=== PATIENT | female | born 1970 | race Caucasian/White ===

== ENCOUNTER 2017-02-28 20:16 | Inpatient (IN) | payer BC, OTHER ==
[~2017-02-28] VITALS: Ht 157.5 cm; Wt 82.5 kg
--- NOTE | 2017-02-28 20:29 | ED Lower Extremity ---
General Chief Complaint: Lower Extremity Stated Complaint: L ANKLE DEFORMITY History of Present Illness Time seen by provider: 20:20 Initial Comments patient was walking on an incline in her yard when she twisted her left ankle and it rolled under her causing her to fall. She had immediate onset of pain and was unable to bear weight on the left lower extremity. EMS did a pneumatic brace on her, she has had fentanyl 100 g and morphine 10 mg IV prior to arrival. She currently rates her pain 10. Onset: just prior to arrival Pain/Injury Location: left ankle Method of Injury: fell Modifying Factors: Improves With Immobilization Allergies and Home Medications Allergies Coded Allergies: Penicillins (Verified Allergy, Mild, 02/28/17) promethazine (Verified Allergy, Unknown, 02/28/17) terfenadine (Verified Allergy, Unknown, 02/28/17) Constitutional: no symptoms reported, see HPI EENTM: no symptoms reported, see HPI Respiratory: no symptoms reported, see HPI Cardiovascular: no symptoms reported, see HPI Gastrointestinal: no symptoms reported, see HPI Genitourinary: no symptoms reported, see HPI : No ( had vasectomy) Musculoskeletal: see HPI, joint pain (left ankle), joint swelling, muscle pain , muscle cramps Skin: no symptoms reported, see HPI Psychiatric/Neurological: No Symptoms Reported, See HPI All Other Systems Reviewed Negative Unless Noted: Yes Past Fmncnmn-Rymhyr-Plvmid Hx Patient Social History Recent Foreign Travel: No Contact w/Someone Who Travel: No Reviewed Nursing Assessment Reviewed/Agree w Nursing PMH: Yes Physical Exam Vital Signs Vital Sign - Last 12Hours 02/28/17 02/28/17 20:18 21:00 Temp 97.9 Pulse 100 Resp 18 B/P (MAP) 122/61 Pulse Ox 100 O2 Delivery Room Air O2 Flow Rate 2.00 2.00 Capillary Refill : General Appearance: WD/WN, moderate distress (secondary to pain left ankle) HEENT: PERRL/EOMI, normal ENT inspection, TMs normal, pharynx normal Neck: non-tender, full range of motion, supple, normal inspection Cardiovascular: regular rate, rhythm, no murmur, other (right ankle 2+ pedal pulses, left ankle 2+ posterior tibialis and faint dorsalis pedis. Cap refill approximately 4 seconds in the left toes. Sensation intact left toes) Respiratory: chest non-tender, lungs clear, normal breath sounds, no respiratory distress Gastrointestinal: normal bowel sounds, non tender, soft, no organomegaly, no pulsatile mass Knees: bilateral knee non-tender, bilateral knee normal inspection, bilateral knee normal range of motion, bilateral knee no evidence of injury Ankles: right ankle non-tender, right ankle normal inspection, right ankle normal range of motion, right ankle no evidence of injury, left ankle bone tenderness, left ankle deformity (obvious anterior displacement of the tibia in relation to the talus.), left ankle limited range of motion (secondary to fracture and dislocation), left ankle pain, left ankle soft tissue tenderness, left ankle swelling Neurologic/Tendon: normal sensation, normal motor functions, normal tendon functions, responds to pain Neurologic/Psychiatric: no motor/sensory deficits, alert, normal mood/affect, oriented x 3 Skin: normal color, warm/dry Lymphatic: no adenopathy Procedure: closed reduction left ankle Patient Education: Explained Benefits, Explained Risks, Pt. Ack. Understanding Agreement on procedure with pt: Yes Breath Sounds per Auscultation: Clear Heart Sounds per Auscultation: Regular Airway Exam: Mouth opens >2 fingers, Neck Full Range of Motion, Visulation of Uvula Sedation Adminstration Time: 20:20 Total Time spent in CS 10 minutes Progress/Conclusion respiratory therapy present in room patient on monitors for vital signs, O2 per nasal cannula at 3 L, SaO2 99-100%, End tidal CO2 monitored 2020 Versed 5 mg IV Re-examination Time: 20:45 Re-examination patient vital signs stable, no complications. patient alert, oriented 3 and answering all questions, following commands appropriately. Dr. Rosen present in room through procedure. Care turned over to: Lidia Bearden RN Splinting and Joint Reduction : Location: left ankle, trimalleolar fracture and dislocation Pre-Proc Neuro Vasc Exam: normal (with exception of decreased pulse dorsalis pedis on the left) Post-Proc Neuro Vasc Exam: normal (pedal pulses on the left 2+ and symmetric bilateral lower extremities) Progress once adequate pain control and sedation were obtained, the left ankle was distracted and tibia easily reduced and alignment with the talus. While keeping the reduction intact, a posterior and sugar tong Ortho-Glass splint were applied with trip wraps. Alignment was held until the splint was secure. Then postreduction x-rays were ordered. Reduction Attempts: 1 Pre-Procedure NV Exam: Yes post joint reduction film: joint reduced (trimalleolar fractures in adequate alignment with minimal displacement) Trip wrap: Yes Hand-Made Type: orthoglass Splint Application: Short Leg (posterior and sugar tong, with ankle in neutral position) Progress/Results/Core Measures Results/Orders My Orders Orders - XOCHITL BLUE Ankle, Left, 3 Views (02/28/17 20:25) Fentanyl Injection (Sublimaze Injection (02/28/17 20:30) Diazepam Injection (Valium Injection) (02/28/17 20:30) Midazolam Injection (Versed Injection) (02/28/17 20:45) Ns Iv 1000 Ml (Sodium Chloride 0.9%) (02/28/17 20:40) Ankle, Left, 3 Views (02/28/17 20:57) Medications Given in ED Current Medications Medications Dose Ordered Sig/Luciana Route Start Time Stop Time Status Last Admin Dose Admin Diazepam 2.5 mg ONCE ONCE IV 02/28/17 20:30 02/28/17 20:31 DC 02/28/17 20:39 2.5 MG Fentanyl Citrate 50 mcg ONCE ONCE IVP 02/28/17 20:30 02/28/17 20:31 DC 02/28/17 20:37 50 MCG Midazolam HCl 5 mg ONCE ONCE IVP 02/28/17 20:45 02/28/17 20:46 DC 02/28/17 21:01 5 MG Vital Signs/I&O Vital Sign - Last 12Hours 02/28/17 02/28/17 20:18 21:00 Temp 97.9 Pulse 100 Resp 18 B/P (MAP) 122/61 Pulse Ox 100 O2 Delivery Room Air Nasal Cannula O2 Flow Rate 2.00 2.00 Progress Note : Time: 20:20 Progress Note initial evaluation completed, patient reports pain 03/30 we'll administer fentanyl 50 g IV and Valium 2.5 mg IV. X-rays to be obtained. concern over decreased dorsalis pedis pulse 2034 x-ray showed trimalleolar fracture with dislocation of the left ankle, discussed findings with Dr. Tomlinson. He agreed with treatment plan for reduction of the ankle dislocation and plan for ORIF tomorrow, since the patient ate approximately 4 hours ago. Valium 2.5 mg IV. 2040 discussed the x-rays and plan of care with Dr. Rosen, agreed to accept responsibility for conscious sedation during the reduction of the dislocation. Plans discussed with the patient and her agreed with recommendation for close reduction. 2056 post reduction x-rays show nondisplaced trimalleolar fracture of the left ankle with adequate alignment of the tibia and talus. 2099 postreduction x-rays and plan of care reviewed with Dr. Tomlinson agreed with treatment plan. 2129 the patient remained alert, denies pain and plans for admission to surgical floor for ORIF tomorrow at 0800 Diagnostic Imaging Diagonstic Imaging: Xray Plain Films/CT/US/NM/MRI: ankle Comments NAME: ANN MCGRATH [facility] REC#: [id number] PT STATUS: REG ER : 1970 PHYSICIAN: XOCHITL BLUE ADMIT DATE: 02/28/17/ER Signed Date of Exam: 02/28/17 ANKLE, LEFT, 3 VIEWS INDICATION: Fall. Injury. COMPARISON: None FINDINGS: 3 views of the left ankle are obtained. There is a fracture dislocation of the ankle, with a trimalleolar fracture. There is anterior and medial dislocation of the tibia and fibula with respect to the talus. The lateral malleolus fragment of the distal fibula remains appropriately aligned with the talus. IMPRESSION: There is trimalleolar fracture of the ankle, with anterior and medial dislocation of the distal tibia and fibula with respect to the talus. Dictated by: Dictated on workstation # [id number] Dict: 02/28/172035 Trans: 02/28/172106 Interpreted by: KENNY WASHINGTON DO Electronically signed by: KENNY WASHINGTON DO 02/28/172106 Reviewed: Reviewed by Me, Reviewed/Discussed (with Drs. Rosen and Bushra.) Diagonstic Imaging: Xray Plain Films/CT/US/NM/MRI: ankle Comments NAME: ANN MCGRATH [facility] REC#: [id number] PT STATUS: REG ER : 1970 PHYSICIAN: XOCHITL BLUE ADMIT DATE: 02/28/17/ER Signed Date of Exam: 02/28/17 ANKLE, LEFT, 3 VIEWS INDICATION: Postreduction evaluation COMPARISON: 02/28/2017 at 8:32 PM Time of Exam: at 9:11 PM FINDINGS: 3 views of the left ankle are obtained through splint material. There has been interval reduction of the fracture dislocation about the ankle. Fracture fragments and alignment at the ankle now appear anatomic with satisfactory reduction. Again there is a trimalleolar fracture present. There is spurring of the os calcis. IMPRESSION: Satisfactory interval reduction of the trimalleolar fracture dislocation of the left ankle. Dictated by: Dictated on workstation # [id number] Dict: 02/28/172115 Trans: 02/28/172129 Interpreted by: KENNY WASHINGTON DO Electronically signed by: KENNY WASHINGTON DO 02/28/172129 Reviewed: Reviewed by Me, Reviewed/Discussed (with Dr. Rosen and by phone with Dr. Tomlinson) Departure Impression Impression: Primary Impression: Trimalleolar fracture of ankle, closed Qualified Codes: S82.852A - Displaced trimalleolar fracture of left lower leg , initial encounter for closed fracture Additional Impression: Dislocation of ankle, left, closed Qualified Codes: S93.05XA - Dislocation of left ankle joint, initial encounter Disposition: ADMITTED INPATIENT Condition: Stable Decision to Admit Reason: Admit from ER (General) Time/Decision to Admit Time: 19:00 XOCHITL BLUE Feb 28, 2017 20:29
[2017-02-28] MEDS ORDERED: fentaNYL INJECTION 100 MCG/2 ML AMP IVP ONE (20:30)
[2017-02-28] MEDS ORDERED: DIAZEPAM INJ 10 MG/2 ML (VALIUM) SYR IV ONE (20:30)
[2017-02-28] MEDS ORDERED: NS IV 1000 ML 1,000 ML ONE (20:40)
--- NOTE | 2017-02-28 20:44 | Diagnostic Imaging Report ---
INDICATION: Fall. Injury. COMPARISON: None FINDINGS: 3 views of the left ankle are obtained. There is a fracture dislocation of the ankle, with a trimalleolar fracture. There is anterior and medial dislocation of the tibia and fibula with respect to the talus. The lateral malleolus fragment of the distal fibula remains appropriately aligned with the talus. IMPRESSION: There is trimalleolar fracture of the ankle, with anterior and medial dislocation of the distal tibia and fibula with respect to the talus. Dictated by: Dictated on workstation # [id number]
[2017-02-28] MEDS ORDERED: MIDAZOLAM 5 MG/5 ML (VERSED) VIAL IVP ONE (20:45)
--- NOTE | 2017-02-28 21:25 | Diagnostic Imaging Report ---
INDICATION: Postreduction evaluation COMPARISON: 02/28/2017 at 8:32 PM Time of Exam: at 9:11 PM FINDINGS: 3 views of the left ankle are obtained through splint material. There has been interval reduction of the fracture dislocation about the ankle. Fracture fragments and alignment at the ankle now appear anatomic with satisfactory reduction. Again there is a trimalleolar fracture present. There is spurring of the os calcis. IMPRESSION: Satisfactory interval reduction of the trimalleolar fracture dislocation of the left ankle. Dictated by: Dictated on workstation # [id number]
[2017-02-28] MEDS ORDERED: ACETAMINOPHEN 325 MG TABLET/CAPLET (TYLENOL) PO PRN (23:30)
[2017-02-28] MEDS ORDERED: ONDANSETRON 4 MG/2 ML (SDV) Z0FRAN IV PRN (23:30)
[2017-02-28] MEDS ORDERED: morphine INJ 4 MG/ML 1 ML (VIAL/SYRINGE) IV PRN (23:30)
[2017-02-28] MEDS ORDERED: CATHETER FLUSH 10 ML SYR IV PRN (23:30)
[2017-02-28 23:46] LABS: BASOPHILS % (AUTO) 0 % (0-10); EOSINOPHILS % (AUTO) 0 % (0-10); LYMPHOCYTES # (AUTO) 0.6 X 10^3 (1.0-4.0); LYMPHOCYTES % (AUTO) 7 % (12-44); MEAN CORPUSCULAR HEMOGLOBIN 30 PG (25-34); MEAN CORPUSCULAR HGB CONC 34 G/DL (32-36); MEAN CORPUSCULAR VOLUME 88 FL (80-99); MEAN PLATELET VOLUME 9.8 FL (7.4-10.4); MONOCYTES # (AUTO) 0.3 X 10^3 (0.0-1.0); MONOCYTES % (AUTO) 4 % (0-12); NEUTROPHILS # (AUTO) 7.5 X 10^3 (1.8-7.8); NEUTROPHILS % (AUTO) 89 % (42-75); PLATELET COUNT 156 10^3/uL (130-400); RED CELL DISTRIBUTION WIDTH 12.3 % (10.0-14.5); WHITE BLOOD COUNT 8.5 10^3/uL (4.3-11.0)
[2017-03-01] VITALS (7 sets, daily range): BP systolic 97–123; BP diastolic 52–71
[2017-03-01 00:18] LABS: ALANINE AMINOTRANSFERASE 19 U/L (0-55); ALBUMIN 3.7 G/DL (3.2-4.5); ANION GAP 10 MMOL/L (5-14); ASPARTATE AMINO TRANSFERASE 20 U/L (5-34); BILIRUBIN,TOTAL 0.4 MG/DL (0.1-1.0); BLOOD UREA NITROGEN 14 MG/DL (7-18); BUN/CREATININE RATIO 17; CALCIUM 8.3 MG/DL (8.5-10.1); CARBON DIOXIDE 23 MMOL/L (21-32); CHLORIDE 105 MMOL/L (98-107); CREATININE SERUM 0.81 MG/DL (0.60-1.30); GFR ESTIMATED > 60; GLUCOSE 108 MG/DL (70-105); POTASSIUM 3.7 MMOL/L (3.6-5.0); SODIUM 138 MMOL/L (135-145); TOTAL PROTEIN 6.1 G/DL (6.4-8.2)
[2017-03-01 00:23] LABS: BAND NEUTROPHILS 2 %; BASOPHILS % (MANUAL) 0 %; EOSINOPHILS % (MANUAL) 0 %; LYMPHOCYTES % (MANUAL) 4 %; NEUTROPHILS % (MANUAL) 93 %
[2017-03-01] MEDS: NS IV 1000 ML 1,000 ML IV SCH ×2 (00:31→14:30)
[2017-03-01] MEDS: CATHETER FLUSH 10 ML SYR IV SCH ×3 (05:09→21:11)
[2017-03-01] MEDS ORDERED: proPOfol 200 MG/20 ML (DIPRIVAN) VIAL IV ONE (07:19)
[2017-03-01] MEDS ORDERED: fentaNYL INJECTION 100 MCG/2 ML AMP ONE (07:20)
[2017-03-01] MEDS ORDERED: MIDAZOLAM 2 MG/2 ML (VERSED) VIAL ONE (07:20)
[2017-03-01] MEDS ORDERED: LACTATED RINGERS 1,000 ML IV ONE (07:24)
[2017-03-01] MEDS ORDERED: LACTATED RINGERS 1,000 ML IV PRN (07:33)
[2017-03-01] MEDS ORDERED: BUPIVACAINE 0.25% 30 ML (SENSORCAINE) VIAL ONE (07:36)
[2017-03-01] MEDS ORDERED: CLINDAMYCIN 600 MG/4ML (CLEOCIN) VIAL ONE (08:02)
[2017-03-01] MEDS ORDERED: NS (IVPB) 50 ML ONE (08:03)
--- NOTE | 2017-03-01 08:03 | History & Physicial ---
History of Present Illness History of Present Illness Reason for visit/HPI Chief complaint: Pain in left ankle HPI: This 46 year old white female was walking in the yard yesterday evening and twisted the left ankle dislocating it. She was brought from [place] to the [facility] ER and had x-rays showing a trimalleolar ankle fracture dislocation. The PA in the ER did a closed reduction and the x-rays looked good. She was admitted for surgery on the ankle the next morning. She denies other injury. Date of Admission Feb 28, 2017 at 21:43 Time Seen by Provider: 08:01 I consulted on this patient on 03/01/17 07:58 Attending Physician Navdeep Tomlinson MD Admitting Physician No,Local Physician Consult Allergies and Home Medications Allergies Coded Allergies: Penicillins (Verified Allergy, Mild, 02/28/17) promethazine (Verified Allergy, Unknown, 02/28/17) terfenadine (Verified Allergy, Unknown, 02/28/17) Home Medications No Active Prescriptions or Reported Meds Past Nhnvltk-Caznoq-Lbohtn Hx Patient Social History Alcohol Use: Denies Use Recreational Drug Use: No Smoking Status: Never a Smoker Physical Abuse Screen: No Sexual Abuse: No Recent Foreign Travel: No Contact w/other who traveled: No Recent Hopitalizations: No Recent Infectious Disease Expo: No Seasonal Allergies Seasonal Allergies: No Reviewed Nursing Assessment Reviewed/Agree w Nursing PMH: Yes Family Medical History Family Hx: Alcoholism paternal grandfather Bone cancer paternal grandmother maternal grandfather FH: brain aneurysm 19 MOTHER FH: stomach cancer Myocardial infarction paternal grandfather Constitutional: no symptoms reported EENTM: no symptoms reported Respiratory: no symptoms reported Cardiovascular: no symptoms reported Gastrointestinal: no symptoms reported Musculoskeletal: see HPI Skin: no symptoms reported Physical Exam Vital Signs Vital Sign - Last 12Hours 02/28/17 02/28/17 20:18 21:00 Temp 97.9 Pulse 100 Resp 18 B/P (MAP) 122/61 Pulse Ox 100 O2 Delivery Room Air O2 Flow Rate 2.00 2.00 Capillary Refill : Less Than 3 SecondsLess Than 3 Seconds General Appearance: No Apparent Distress, WD/WN HEENT: PERRL/EOMI Neck: Full Range of Motion Respiratory: Chest Non Tender Cardiovascular: Regular Rate, Rhythm Gastrointestinal: Normal Bowel Sounds, Non Tender Rectal: Deferred Back: No Vertebral Tenderness Extremity: Normal Capillary Refill, Other (The left ankle is swollen and tender. ROM deferred. ) Skin: Normal Color, Warm/Dry Lymphatic: No Adenopathy Assessment/Plan Assessment and Plan Left trimalleolar ankle fracture dislocation-- Will go to the OR for ORIF of the ankle Problems: Admission Diagnosis Left trimalleolar ankle fracture dislocation Clinical Quality Measures DVT/VTE Risk/Contraindication: Risk Factor Score Per Nursin RFS Level Per Nursing on Admit: 4+=Very High NAVDEEP TOMLINSON MD Mar 01, 2017 08:03
[2017-03-01] MEDS ORDERED: morphine INJ 10 MG/ML 1ML (SYR OR VIAL) IVP PRN (08:15)
[2017-03-01] MEDS ORDERED: HYDROcodone/APAP 5 MG/325 MG (LORTAB) TAB PO PRN (08:15)
[2017-03-01] MEDS ORDERED: HYDROcodone/APAP 7.5 MG/325 MG (LORTAB, LORCET PLUS) TABLET PO PRN (08:15)
[2017-03-01] MEDS ORDERED: VANCOMYCIN INJECTION 1,000 MG in NS (IVPB) 250 ML IV NR (08:27)
[2017-03-01] MEDS ORDERED: ONDANSETRON 4 MG/2 ML (SDV) Z0FRAN ONE (09:26)
[2017-03-01] MEDS ORDERED: SEVOFLURANE (ULTANE) 15 ML INHAL SOLN ONE (09:26)
--- NOTE | 2017-03-01 09:35 | Progress Note-Post Operative ---
Post-Operative Progess Note Surgeon (s)/Java Programming Professor (s) Surgeon NAVDEEP OCHOA MD Java Programming Professor: Onur Vega PA-C Pre-Operative Diagnosis left trimalleolar ankle fracture dislocation Post-Operative Diagnosis same Procedure & Operative Findings Date of Procedure 03/01/17 Procedure Performed/Findings ORIF left trimalleolar ankle fracture without fixation of posterior malleolus Anesthesia Type General with popliteal and saphenous nerve block Estimated Blood Loss Estimated blood loss (mL): 5 ml Specimens/Packing Specimens Removed none Packing: none NAVDEEP OCHOA MD Mar 01, 2017 09:35
[2017-03-01] MEDS: morphine INJ 10 MG/ML 1ML (SYR OR VIAL) IVP PRN ×2 (09:56→10:05)
[2017-03-01] MEDS ORDERED: KETOROLAC 30 MG/ML VIAL IVP ONE (10:00)
[2017-03-01] MEDS ORDERED: MEPERIDINE (DEMEROL) INJ 50 MG/ML IVP PRN (10:00)
[2017-03-01] MEDS ORDERED: ONDANSETRON 4 MG/2 ML (SDV) Z0FRAN IVP PRN (10:00)
[2017-03-01] MEDS ORDERED: HYDROmorphone (DILAUDID) 2 MG/ML VIAL IVP PRN (10:00)
[2017-03-01] MEDS: HYDROcodone/APAP 10 MG/325 MG (LORTAB) TAB PO PRN ×2 (10:49→18:56)
--- NOTE | 2017-03-01 10:49 | OPERATIVE REPORT ---
DATE OF SERVICE: 03/01/2017 PREOPERATIVE DIAGNOSIS: Left trimalleolar ankle fracture dislocation. POSTOPERATIVE DIAGNOSIS: Left trimalleolar ankle fracture dislocation. PROCEDURE: Open reduction, internal fixation of left trimalleolar ankle fracture dislocation without fixation of posterior malleolus. SURGEON: Dr. Tomlinson. TUBER HELPER: ROMANA Le. TUBER HELPER SURGEON DUTIES: Patient positioning, retraction, use of internal fixation devices, wound closure, application of sterile dressing, use to assist as medically indicated. ANESTHESIA: General with popliteal and saphenous nerve blocks, use of a nerve block for anesthesia is medically indicated for postoperative pain control and a CONTACT CENTER MANAGER was consulted for their expertise in placing the block. COMPLICATIONS: None. BLOOD LOSS: 5 mL. IMPLANTS: Synthes 6 hole 1/3 tubular plate for the distal fibula with 2, 4 mm cancellous screws for the distal fragment and 3, 3.5 mm bicortical screws for the proximal fragment and 1, 3.5 mm interfragmentary compression screw, Synthes 4 mm cannulated screws x 2 for the medial malleolus. INDICATIONS: This lady twisted the left ankle yesterday evening and sustained a fracture dislocation of the left ankle. The ER physician did a closed reduction of the ankle and she comes to the operating room for open reduction, internal fixation. PROCEDURE IN DETAIL: After informed consent, the patient was transported to the operating room. She was placed on the operating table in the supine position. General anesthesia was induced. Prior to the procedure, a nerve block was done by CONTACT CENTER MANAGER. A timeout was performed, 600 mg of clindamycin was administered intravenously. After successfully undergoing general anesthetic, tourniquet was placed on the left thigh. The left lower extremity was prepped with Chloraprep, draped in the sterile fashion. The left lower extremity was exsanguinated and the tourniquet was inflated. The medial malleolus was approached first. A longitudinal incision was made over the medial malleolus. The subcutaneous tissues were dissected. The periosteum was incised and elevated. Fracture was identified. It was cleared of tissue with irrigation and forceps. The fracture was reduced and secured with 2 parallel guide pins through the medial malleolus into the distal tibia. Placement was confirmed on the C-arm. The guide pins were measured and then the appropriate length, 4 mm, cannulated screws were placed over the guide pins obtaining excellent compression and purchase. The guide pins were then removed. The C-arm images looked good. The lateral malleolus then was approached. A longitudinal incision was made over the lateral malleolus. The periosteum was incised and elevated. The fracture was irrigated and secured with a reduction forceps. A single interfragmentary compression screw was placed from posterior to anterior to compress the fracture and then a 6 hole 1/3 tubular plate was contoured to the lateral fibula and was secured in place with the previously mentioned screws in the beginning of the report. Excellent purchase was obtained. The C-arm was brought in and AP and lateral and mortise views were taken and documented. Anatomic reduction of the ankle mortise, anatomic reduction of the fractures and satisfactory screw length and position. These images were saved as hard copies to the [facility] PAC system. The wounds then were thoroughly irrigated and were closed in layers with interrupted 0 Vicryl, running 2-0 Vicryl and aram in the skin. Sterile dressings were applied along with a short leg splint. The tourniquet was deflated. She was then transported to the recovery room in stable condition. Job ID: [id number] DocumentID: [id number] Dictated Date: 03/01/2017 09:33:11 Tyre Retreader Date: 03/01/2017 10:48:31 Dictated By: NAVDEEP TOMLINSON MD
--- NOTE | 2017-03-01 13:39 | Diagnostic Imaging Report ---
INDICATION: Fracture. FINDINGS: Several intraoperative fluoroscopic images are submitted during open reduction and internal fixation of distal fibular fracture with plate and screws. There are also 2 partially threaded cannulated screws in the medial malleolus. Talar dome is intact. IMPRESSION: Intraoperative fluoroscopy during ORIF of distal left tibiofibular fractures as described. Dictated by: Dictated on workstation # [id number]
[2017-03-01] MEDS: CLINDAMYCIN INJECTION 600 MG in NS (IVPB) 50 ML IV SCH ×2 (14:30→19:50)
[2017-03-01] MEDS: KETOROLAC 30 MG/ML VIAL IVP PRN ×2 (15:12→21:58)
[2017-03-01] MEDS: ONDANSETRON 4 MG/2 ML (SDV) Z0FRAN IV PRN (19:50)
[2017-03-02] VITALS: BP 96/51
--- NOTE | 2017-03-02 03:31 | Anesthesia-Peripheral Nerve Bl ---
Procedure Start/Stop Time Date of Procedure: Mar 01, 2017 Start Time: 07:55 Stop Time: 08:15 Peripheral Nerve Block Peripheral Nerve Blockade Risk/Benefits/Alternatives discussed, including IV injection leading to complications or seizures, nerve irritation or damage, pneumothorax, total spinal anesthesia, injection, and/or bleeding. Approach: Left popliteal Side Confirmed: LEFT Indication: Req Pain Mgmt by Surgeon Specifically requested for management of pain by: Dr. Tomlinson Patient Condition Vital Signs Vital Signs Date Time Temp Pulse Resp B/P (MAP) Pulse Ox O2 Delivery O2 Flow Rate FiO2 03/02/17 00:00 99.0 71 20 96/51 98 Room Air 03/01/17 20:05 1.00 Patient Condition: Sedate/contact maintained Procedure Prepartation: Chlorhexidine Position: RLD [place]: Short-bevel Needle (s) Size: 22g 2" Technique: Nerve Stimulation Motor response or parethesia o: Calf twitch mA: 0.5 Sedation Given: Fentanyl (50mcb), Midazolam (2mg) Injectate: ropivacaine Concentration %: 0.5 Volume (ml): 20 Epinephrine used: No Narrative Injection was made incrementally with constant monitoring. Aspiration every (mls): 5 Blood Aspirated: No Pain on injection noted: No Normal Resistance on injection: Yes Events Events: None:easy well tolerated Sucess: Full evaluation-pending Patient Conditon Post Peripheral Nerve Block Post Peripheral Nerve Block Vital Signs: Blood Pressure: Systolic Diastolic Heart Rate Blood Pressure Systolic: 96 Blood Pressure Diastolic: 51 Pulse Rate (adult): 71 SANTANA CRUZ CRNA Mar 02, 2017 03:31
[2017-03-02 04:00] VITALS: BP 121/61
[2017-03-02] MEDS: NS IV 1000 ML 1,000 ML IV SCH (04:28)
[2017-03-02] MEDS ORDERED: HYDR-3820 PO (05:29)
--- NOTE | 2017-03-02 05:36 | Discharge Summary ---
Diagnosis/Chief Complaint Date of Admission Feb 28, 2017 at 21:43 Date of Discharge Discharge Date: Mar 02, 2017 Admission Diagnosis Admission Diagnosis Left trimalleolar ankle fracture dislocation Discharge Diagnosis Left trimalleolar ankle fracture dislocation Reason Hospital Visit Left ankle fx. Discharge Summary Hospital Course Hospital Course Patient was transferred from [facility] due to left ankle fracture dislocation. Patient was taken to OR for left ankle ORIF. There were no significant events during her surgery or post-operative stay. Patient tolerated PT and was able to mobilize with the use of freezer assistant devices. Her pain was well controlled with oral analgesics. She was discharged home on POD #1. She is to remain non-weight bearing on the LLE, and instructed to not allow her splint to get wet. Labs Laboratory Tests 02/28/17 23:35: Neutrophils (%) (Auto) 89H, Lymphocytes (%) (Auto) 7L, Lymphocytes # (Auto) 0.6L , Glucose Level 108H, Calcium Level 8.3L, Total Protein 6.1L Procedures Left ankle ORIF Discharge Physical Examination Allergies: Coded Allergies: Penicillins (Verified Allergy, Mild, 02/28/17) promethazine (Verified Allergy, Unknown, 02/28/17) terfenadine (Verified Allergy, Unknown, 02/28/17) Vitals & I&Os Vital Signs Date Time Temp Pulse Resp B/P (MAP) Pulse Ox O2 Delivery O2 Flow Rate FiO2 03/02/17 00:00 99.0 71 20 96/51 98 Room Air 03/01/17 20:05 1.00 General Appearance: Alert, Oriented X3 Respiratory: Normal Air Movement Extremities: No Edema, Normal Pulses, Other (Left ankle in splint) Neuro: Normal Tone, Sensation Intact Psych/Mental Status: Mental Status NL Discharge Home Medications Reviewed and agree with Discharge Medication list on patient's Discharge Instruction sheet Instructions to Patient/Family Please see electonic discharge instructions given to patient. Clinical Quality Measures DVT/VTE Risk/Contraindication: Risk Factor Score Per Nursin RFS Level Per Nursing on Admit: 4+=Very High PHOBEE GRUBBS Mar 02, 2017 05:36
[2017-03-02] MEDS: CATHETER FLUSH 10 ML SYR IV SCH (06:24)
[2017-03-02] MEDS: KETOROLAC 30 MG/ML VIAL IVP PRN (06:25)
[2017-03-02] MEDS: ONDANSETRON 4 MG/2 ML (SDV) Z0FRAN IV PRN (06:37)
[2017-03-02 08:00] VITALS: BP 102/52
[2017-03-02] MEDS: HYDROcodone/APAP 10 MG/325 MG (LORTAB) TAB PO PRN (08:24)
[2017-03-02] MEDS ORDERED: ONDA4TAB8 PO (08:31)
--- NOTE | 2017-03-02 09:24 | Physical Therapy Evaluation ---
PT Evaluation-General Medical Diagnosis Admission Date Feb 28, 2017 at 21:43 Medical Diagnosis: trimalleolar fracture/dislocation left ankle Onset Date: Feb 28, 2017 Therapy Diagnosis Therapy Diagnosis: generalized debility Height/Weight Height (Feet): 5 Height (Inches): 2.00 Weight (Pounds): 181 Weight (Ounces): 14.4 Precautions Precautions/Isolations: Standard Precautions Weight Bear Status Weight Bearing Restriction: Non Weight Bearing Location Restriction: L LE Referral Physician: Bushra Reason for Referral: Evaluation/Treatment Medical History Additional Medical History unremarkable Current History s/p fall in yard by twisting ankle resulting in trimalleolar fracture/ dislocation left ankle Reviewed History: Yes Social History Home: Single Level Current Living Status: Spouse Entry Into Home: Stairs With Railing PT Steps Into Home: 3 Prior/Core FIM Prior Level of Function Functional [place] Measure 0=Not Assessed/NA 4=Minimal Assistance 1=Total Assistance 5=Supervision or Setup 2=Maximal Assistance 6=Modified [place] 3=Moderate Assistance 7=Complete [place] Bed Mobility: 7 Transfers (B,C,W/C) (FIM): 7 Gait: 7 Locomotion: 7 PT Evaluation-Current Subjective Patient agrees to PT. Pain Numeric Pain Scale: 5-Moderate Pain Location: Left Location Body Site: Ankle Pain Description: Acute Objective Patient Orientation: Normal For Age Problem Solving: Good ROM/Strength ROM Lower Extremities right LE WNL left LE WNL ; ankle NT Strenght Lower Extremities bilateral LE WFL Integumentary/Posture Integumentary refer to nursing notes Bowel Incontinence: No Bladder Incontinence: No Posture WNL Neuromuscular (Tone, Coordination, Reflexes) grossly intact Sensory Vision: Functional Hearing: Functional Sensation Right Lower Extremit: Intact Sensation Left Lower Extremity: Intact Transfers Functional [place] Measure 0=Not Assessed/NA 4=Minimal Assistance 1=Total Assistance 5=Supervision or Setup 2=Maximal Assistance 6=Modified [place] 3=Moderate Assistance 7=Complete [place] Transfers (B, C, W/C) (FIM): 6 Scootin Rollin Supine to/from Sit: 7 Sit to/from Stand: 6 Gait Mode of Locomotion: Walk Anticipated Mode of Locomotion: Walk Gait (FIM): 6 Distance (FIM): 3=150 ft Gait Assistive Device: Crutches Comments/Gait Description and knee scooter; NWB left LE Stairs Stairs (FIM): 2 #of Steps: 4 Level of Assist: 5 Assistive Device: Crutches Balance Sitting Static: Normal Sitting Dynamic: Normal Standing Static: Normal Standing Dynamic: Normal Assessment/Needs 46 y.o. female, is safe and functional with use of crutches and knee scooter NWB left LE. PT recommends both assistive devices to be utilized due to patient 's activity level of high. Patient to utilize knee scooter for long distances and crutches for shorter, confined situations. Rehab Potential: Good PT Plan Treatment/Plan Treatment Plan: Discontinue PT, goals met Treatment Duration: Mar 02, 2017 Visits Per Week: 1 Pt/Family Agrees w/Plan: Yes Safety Risks/Education Patient Education: Gait Training, Steps Teaching Recipient: Patient Teaching Methods: Demonstration Response to Teaching: Verbalize Understanding, Return Demonstration Discharge Recommendations Therapy D/C Recommendations: Home w/ Family Support, Home Independently Time/GCodes Time In: 815 Time Out: 840 Total Billed Treatment Time: 25 Total Billed Treatment 1 visit EVModC 25 min G Codes Necessary: LUZMARIA Butler PT Mar 02, 2017 09:24
[2017-03-02 09:50] VITALS: BP 102/52
== END 2017-03-02 09:50 | disposition home or self-care (01) | DRG 494 ==
LOC: ER 20:19 → 4TH 21:43
PROVIDERS: ADMIT Orthopaedic Surgery; ATTEND Orthopaedic Surgery
PROC: 0QSHXZZ Reposition Left Tibia, External Approach (ICD-10-PCS; 2017-02-28)
PROC: 0QSK04Z Reposition Left Fibula with Internal Fixation Device, Open Approach (ICD-10-PCS; 2017-03-01)
PROC: 0QSH04Z Reposition Left Tibia with Internal Fixation Device, Open Approach (ICD-10-PCS; principal; 2017-03-01 08:19)
DX: S82.855A Nondisplaced trimalleolar fracture of left lower leg, initial encounter for closed fracture (principal); W17.81XA Fall down embankment (hill), initial encounter; X50.1XXA Overexertion from prolonged static or awkward postures, initial encounter; Y92.017 Garden or yard in single-family (private) house as the place of occurrence of the external cause; Y93.01 Activity, walking, marching and hiking
CPT/HCPCS: 36415; 73610; 80053; 84703; 85007; 85027; 87081; 93041; 94760

== ENCOUNTER 2019-05-08 21:28 | Emergency (ER) | payer BC ==
[~2019-05-08] VITALS: Ht 154.9 cm; Wt 74.8 kg
[~2019-05-08 21:28] MED LIST: HYDR-3820 PO; ONDA4TAB8 PO
--- NOTE | 2019-05-08 21:42 | ED Lower Extremity ---
General Stated Complaint: R FOOT PAIN Source: patient Exam Limitations: no limitations History of Present Illness Date Seen by Provider: May 08, 2019 Time Seen by Provider: 21:31 Initial Comments Patient presents to ER by private conveyance with chief complaint that 6 days ago she was walking in the morning and stubbed her right foot into a concrete step off and fell forward landing on her right hand. By the second day shewas having some pain in her right foot and has only progressively gotten worse. She's not having any numbness paresthesias or tingling in her foot. She has no pain anywhere else. She's not using anything for the pain but her was concerned that there was a knot on the right foot lateral side. No previous inj ury to her right foot. Allergies and Home Medications Allergies Coded Allergies: Penicillins (Verified Allergy, Mild, 02/28/17) promethazine (Verified Allergy, Unknown, 02/28/17) terfenadine (Verified Allergy, Unknown, 02/28/17) Home Medications Hydrocodone/Acetaminophen 1 Each Tablet, 1 EA PO Q4H PRN for PAIN-SEVERE Prescribed by: PHOEBE GRUBBS on 03/02/17 0529 Ondansetron 4 Mg Tab.rapdis, 4 MG PO Q6H Prescribed by: PHYLLIS NGUYEN on 03/02/17 0831 Patient Home Medication List Home Medication List Reviewed: Yes Review of Systems Constitutional: No chills, No diaphoresis EENTM: No hearing loss, No ear pain Respiratory: No cough, No short of breath Cardiovascular: No chest pain, No edema Gastrointestinal: No abdominal pain, No constipation Past Cuvnsur-Febypb-Mdorps Hx Patient Social History Alcohol Use: Denies Use Recreational Drug Use: No Smoking Status: Never a Smoker Recent Foreign Travel: No Contact w/Someone Who Travel: No Recent Hopitalizations: No Seasonal Allergies Seasonal Allergies: No Past Medical History Surgeries: Yes (UTERINE ABLATION; orif left ankle 03/01/17) Respiratory: No Cardiac: No Neurological: No Genitourinary: No Gastrointestinal: No Musculoskeletal: No Endocrine: No HEENT: No Cancer: No Psychosocial: No Integumentary: No Family Medical History Alcoholism paternal grandfather Bone cancer paternal grandmother maternal grandfather FH: brain aneurysm 19 MOTHER FH: stomach cancer Myocardial infarction paternal grandfather Physical Exam Vital Signs Capillary Refill : Height, Weight, BMI Height: 5'2.00" Weight: 181lbs. 14.4oz. [id number]; 33.3 BMI Method:Estimated General Appearance: WD/WN, no apparent distress HEENT: PERRL/EOMI, pharynx normal Cardiovascular: normal peripheral pulses, regular rate, rhythm, other (trace bipedal edema) Respiratory: no respiratory distress, no accessory muscle use Ankles: right ankle non-tender, right ankle normal inspection, right ankle normal range of motion, right ankle no evidence of injury Feet: left foot non-tender; bilateral foot normal inspection, bilateral foot normal range of motion; left foot no evidence of injury; right foot bone tenderness (midshaft fifth metatarsal), right foot swelling (lateral side right foot mild) Neurologic/Tendon: normal sensation, normal motor functions, normal tendon functions, responds to pain, no evidence tendon injury Neurologic/Psychiatric: no motor/sensory deficits, normal mood/affect Skin: normal color, warm/dry Procedures/Interventions Patient Education: Explained Benefits, Explained Risks, Pt. Ack. Understanding Breath Sounds per Auscultation: Clear Heart Sounds per Auscultation: Regular Airway Exam: Mouth opens >2 fingers, Neck Full Range of Motion, Visulation of Uvula Sedation Adminstration Time: 2019 Re-examination Time: 2044 Progress/Results/Core Measures Results/Orders My Orders Orders - KEILA FLORES Foot 3 View Right (05/08/19 21:36) Diagnostic Imaging Diagonstic Imaging: Xray Plain Films/CT/US/NM/MRI: other (right foot 3 view) Comments No acute osseous abnormalities. Departure Impression Primary Impression: Acute pain of right foot Disposition: 01 HOME, SELF-CARE Condition: Stable Departure-Patient Inst. Decision time for Depature: 21:50 Referrals: NO,LOCAL PHYSICIAN (PCP) Primary Care Physician Patient Instructions: Metatarsalgia (DC) Add. Discharge Instructions: May consider wrapping your foot with an Trip bandage or a neoprene foot and ankle sleeve for the next week or 2. If your symptoms persist you can pursue follow-up with either your primary care doctor or a [employer] fire chief. Make sure you're wearing well fitting shoes with proper insoles. Naproxen 1-2 tablets twice daily as needed for pain. Tylenol 1000 mg every 8 hours as needed for pain. KEILA FLORES J May 08, 2019 21:42
[2019-05-08 21:50] VITALS: BP 119/49
--- NOTE | 2019-05-08 22:00 | Diagnostic Imaging Report ---
INDICATION: Fall, foot injury COMPARISON: None FINDINGS: 3 views of the right foot demonstrate no fracture or dislocation. Articular surfaces are normal. There is no foreign body. IMPRESSION: Negative right foot Dictated by: Dictated on workstation # [id number]
== END 2019-05-08 21:50 | disposition home or self-care (01) ==
LOC: EDUNIT# 21:28 → ER FS 21:30
DX: M79.671 Pain in right foot (principal); Z88.0 Allergy status to penicillin; Z88.8 Allergy status to other drugs, medicaments and biological substances; Z98.890 Other specified postprocedural states; Z80.0 Family history of malignant neoplasm of digestive organs; Z82.49 Family history of ischemic heart disease and other diseases of the circulatory system; Z80.8 Family history of malignant neoplasm of other organs or systems; W18.09XA Striking against other object with subsequent fall, initial encounter
CPT/HCPCS: 73630